=== PATIENT | female | born 1970 | race Caucasian/White ===

== ENCOUNTER 2023-12-16 15:33 | Emergency (ER) | payer BC ==
[~2023-12-16] VITALS: Ht 160 cm; Wt 64.9 kg
[2023-12-16] MEDS ORDERED: TDAP DIPH,PERTUSS,TET VAC/PF 0.5 ML DISP.SYRIN IM ONE (17:32)
[2023-12-16] MEDS: TDAP DIPH,PERTUSS,TET VAC/PF 0.5 ML DISP.SYRIN IM ONE (17:34)
[2023-12-16 17:37] VITALS: BP 127/84; O2SAT 100
== END 2023-12-16 17:38 | disposition home or self-care (01) ==
LOC: ER 15:36
DX: S71.131A Puncture wound without foreign body, right thigh, initial encounter (principal); E11.9 Type 2 diabetes mellitus without complications; Z60.2 Problems related to living alone; W54.0XXA Bitten by dog, initial encounter; Y93.89 Activity, other specified; Y92.89 Other specified places as the place of occurrence of the external cause; Y99.8 Other external cause status
CPT/HCPCS: 90715; A4606; A4663